=== PATIENT | male | born 1950 ===

== ENCOUNTER 2020-11-24 08:46 | Inpatient (IN) | payer MEDICARE, OTHER ==
[~2020-11-24] VITALS: Ht 170.2 cm; Wt 82.0 kg
[2020-12-11] VITALS (11 sets, daily range): BP systolic 116–145; BP diastolic 70–86; PULSE 56–80; TEMP 97.7–97.8
[2020-12-11] MEDS ORDERED: SINGULAIR 110 MG/TAB PO (06:08)
[2020-12-11] MEDS ORDERED: ZYRTEC ALLERGY10 MG PO (06:08)
[2020-12-11] MEDS ORDERED: TYLENOL 500MG500 MG PO (06:09)
[2020-12-11] MEDS ORDERED: HCTZ 25MG TAB25 MG PO (06:09)
[2020-12-11] MEDS ORDERED: VITAMIN D 400400 IU PO (11:42)
--- NOTE | 2020-12-11 12:48 | NUR ---
Patient doing well post op. Awake & alert. Vss on room air. He was up & we ambulated the halls. Steady gait. He is now sitting in the chair, with his at bedside. Patient hoffman to DD with tea colored output. Ivf per orders. JORGE to compression, no output yet. lap site edges well approximated. scds
--- NOTE | 2020-12-11 16:39 | NUR ---
Patient resting in bed, we have ambulated the halls 3 times. Pain managed per eras. Root to dd with adequate output. Darci drain to compression, new gauze dressing to drain insertion site. No output in bulb. tolerating clears. Ivf to wrist per orders. Written Education for yasmin provided, he read through. Scds. Vss on room air.
--- NOTE | 2020-12-11 19:40 | NUR ---
Patient continues to do well. Bedside report to night shiftnurse
--- NOTE | 2020-12-11 22:30 | NUR ---
PT IN BED, ALERT AND ORIENTED X4. JIM CARES GIVEN. ROBOTIC SITES TO ABD BRUISED, DRY. JORGE DRAIN WITH 20CC BLOODY DRAINAGE EMPTIED. DENIES PAIN, REPORTS "UNCOMFORTABLE". HS MEDS GIVEN.
--- NOTE | 2020-12-11 23:30 | NUR ---
AMBULATES IN HALLWAY WITH STEADY GAIT. JIM WITH CLEAR YELLOW URINE. IVF PATENT TO RIGHT HAND.
[2020-12-12 00:21] VITALS: BP 127/73; PULSE 77; TEMP 98
--- NOTE | 2020-12-12 03:30 | NUR ---
Pt up in hallway on own. Root with good urine output. Denies pain. JORGE drain with minimal bloody drainage.
[2020-12-12 04:51] VITALS: BP 123/73; PULSE 67; TEMP 97.9
--- NOTE | 2020-12-12 06:00 | NUR ---
Pt reports passing gas. Has been up ambulating in hallway without problem.
[2020-12-12 06:40] LABS: HEMATOCRIT 44.1 % (42.0-52.0); HEMOGLOBIN 14.9 g/dl (13.5-18.0)
[2020-12-12 06:53] LABS: CALCIUM 8.4 mg/dL (8.4-10.2); CREATININE, serum 1.03 (0.66-1.25); POTASSIUM 4.2 mmol/L (3.4-5.0)
[2020-12-12 07:53] VITALS: BP 139/72; PULSE 77; TEMP 97.9
--- NOTE | 2020-12-12 10:37 | NUR ---
Estelle assistend with DPOA signiture. Placed original in chart and gave copies to patient and family.
--- NOTE | 2020-12-12 10:38 | NUR ---
Patient has been up amblating the halls. Patient tolerated breakfast & did well. Denies nausea. Pain managed. His at bedside we discussed hoffman care. Patient not interested in leg bag or leg bag teaching. Patient iv to int. New Darci drain drressing applied. Hoffman cares provided. rounded, patietn anticipating discharge.
[2020-12-12 11:28] VITALS: BP 118/61; PULSE 75; TEMP 98.1
--- NOTE | 2020-12-12 11:31 | NUR ---
SW met with patient to conduct intake assessment. Patient lives at home in [place] with Stefania (P# [phone]). Patient is independent at home and requires no DME. Patient see Dr. Jarquin in [place] nd uses [facility] for medications. Patient reports that Stefania is his DPOA-HC, but they did not bring paperwork. Social work will contact Milka's office Monday to obtain DPOA paperwork. Patient plans to return home with upon discharge, and will provide transportation. Patient denies questions or concerns at this time. Social work will continue to follow.
--- NOTE | 2020-12-12 12:28 | NUR ---
Patient ready for discharge. Darci drain dc, he tolerated well. Vss on room air. His to take him home. He is understanding of hoffman cares. Activity & diet restrictions reviewed. Home med list & importance of holding hctz for 2 days discussed. Patient ambulated out with all belongings. Denies questions or concerns.
== END 2020-12-12 12:33 | disposition home or self-care (01) | DRG 707 ==
LOC: INPTSU 12-11 05:36 → SURG 12-11 07:30
PROVIDERS: ADMIT Urology
PROC: 07BC4ZZ Excision of Pelvis Lymphatic, Percutaneous Endoscopic Approach (ICD-10-PCS; 2020-12-11)
PROC: 8E0W4CZ Robotic Assisted Procedure of Trunk Region, Percutaneous Endoscopic Approach (ICD-10-PCS; 2020-12-11)
PROC: 0VT34ZZ Resection of Bilateral Seminal Vesicles, Percutaneous Endoscopic Approach (ICD-10-PCS; 2020-12-11)
PROC: 0VBQ4ZZ Excision of Bilateral Vas Deferens, Percutaneous Endoscopic Approach (ICD-10-PCS; 2020-12-11)
PROC: 0VT04ZZ Resection of Prostate, Percutaneous Endoscopic Approach (ICD-10-PCS; principal; 2020-12-11 07:30)
DX: C61 Malignant neoplasm of prostate (principal); E87.1 Hypo-osmolality and hyponatremia; I10 Essential (primary) hypertension; M19.90 Unspecified osteoarthritis, unspecified site; Z96.653 Presence of artificial knee joint, bilateral; Z96.643 Presence of artificial hip joint, bilateral
CPT/HCPCS: A4314; J0330; J0690; J1100; J1885; J2405; J2704; J3010; J7120